=== PATIENT | female | born 1975 | race American Indian/Alaskan Native ===

== ENCOUNTER 2017-07-27 02:01 | Emergency (ER) | payer BC ==
[2017-07-27 02:39] VITALS: BP 143/86
--- NOTE | 2017-07-27 04:38 | Emergency Department Report ---
ED ENT HPI - General Chief complaint: Sore Throat Stated complaint: SORE THROAT; RT EARACHE Time Seen by Provider: 07/27/17 04:32 Source: patient Mode of arrival: Ambulatory Limitations: No Limitations - History of Present Illness MD complaint: sore throat, ear pain Onset/Timin -: days(s) Location: throat Severity: moderate Quality: aching Consistency: constant Improves with: none Worsens with: none Associated Symptoms: sore throat - Related Data Home Medications Medication Instructions Recorded Confirmed Last Taken Hydrochlorothiazide 25 mg PO DAILY 08/28/13 06/16/14 06/15/14 Simvastatin 20 mg PO QHS 06/11/14 06/16/14 06/15/14 Previous Rx's Medication Instructions Recorded Last Taken Type Amoxicillin/K Clav Tab [Augmentin 1 tab PO BID #10 tablet 06/11/14 06/15/14 Rx 875MG] Ibuprofen [Motrin] 800 mg PO Q8H #30 tablet 06/16/14 Unknown Rx Ondansetron [Zofran Odt] 4 mg PO Q4H PRN #20 tab.rapdis 06/16/14 Unknown Rx methOCARBAMOL [Robaxin] 500 mg PO BID #30 tab 06/16/14 Unknown Rx methylPREDNISolone [Medrol Dose 4 mg PO DAILY 6 Days tab 06/16/14 Unknown Rx [place]] Azithromycin [Zithromax Z-SANTIAGO] 250 mg PO DAILY #6 tablet 08/25/14 Unknown Rx HYDROcodone/APAP 5-325 [[place] 1 each PO Q6HR PRN #14 tablet 08/25/14 Unknown Rx 5-325 mg TAB] Ondansetron [Zofran Odt] 4 mg PO Q6H #14 tab.rapdis 08/25/14 Unknown Rx Gentamicin 0.3% Ophth Oint 1 applicatio OP Q4H #1 tube 04/28/15 Unknown Rx Ibuprofen [Motrin] 800 mg PO Q8HR PRN #60 tablet 04/28/15 Unknown Rx traMADol [Ultram] 50 mg PO Q6HR PRN #14 tablet 04/28/15 Unknown Rx Amoxicillin/K Clav Tab [Augmentin 1 tab PO Q12HR #14 tab 07/27/17 Unknown Rx 875 mg] Amoxicillin/Potassium Clav 800 mg PO Q12HR #1 bottle 07/27/17 Unknown Rx [Augmentin 400-57 MG / 5ml] Fluconazole [Diflucan] 150 mg PO ONCE #1 tablet 07/27/17 Unknown Rx Ibuprofen [Motrin] 600 mg PO Q8H PRN #30 tablet 07/27/17 Unknown Rx Allergies Allergy/AdvReac Type Severity Reaction Status Date / Time codeine Allergy Rash Verified 08/28/13 20:41 hydromorphone HCl Allergy Rash Verified 08/28/13 20:45 [From Dilaudid] rosiglitazone maleate Allergy Rash Verified 08/28/13 20:41 [From Avandia] ED Dental HPI - General Chief complaint: Sore Throat Stated complaint: SORE THROAT; RT EARACHE Time Seen by Provider: 07/27/17 04:32 Source: patient Mode of arrival: Ambulatory Limitations: No Limitations - Related Data Home Medications Medication Instructions Recorded Confirmed Last Taken Hydrochlorothiazide 25 mg PO DAILY 08/28/13 06/16/14 06/15/14 Simvastatin 20 mg PO QHS 06/11/14 06/16/14 06/15/14 Previous Rx's Medication Instructions Recorded Last Taken Type Amoxicillin/K Clav Tab [Augmentin 1 tab PO BID #10 tablet 06/11/14 06/15/14 Rx 875MG] Ibuprofen [Motrin] 800 mg PO Q8H #30 tablet 06/16/14 Unknown Rx Ondansetron [Zofran Odt] 4 mg PO Q4H PRN #20 tab.rapdis 06/16/14 Unknown Rx methOCARBAMOL [Robaxin] 500 mg PO BID #30 tab 06/16/14 Unknown Rx methylPREDNISolone [Medrol Dose 4 mg PO DAILY 6 Days tab 06/16/14 Unknown Rx [place]] Azithromycin [Zithromax Z-SANTIAGO] 250 mg PO DAILY #6 tablet 08/25/14 Unknown Rx HYDROcodone/APAP 5-325 [[place] 1 each PO Q6HR PRN #14 tablet 08/25/14 Unknown Rx 5-325 mg TAB] Ondansetron [Zofran Odt] 4 mg PO Q6H #14 tab.rapdis 08/25/14 Unknown Rx Gentamicin 0.3% Ophth Oint 1 applicatio OP Q4H #1 tube 04/28/15 Unknown Rx Ibuprofen [Motrin] 800 mg PO Q8HR PRN #60 tablet 04/28/15 Unknown Rx traMADol [Ultram] 50 mg PO Q6HR PRN #14 tablet 04/28/15 Unknown Rx Amoxicillin/K Clav Tab [Augmentin 1 tab PO Q12HR #14 tab 07/27/17 Unknown Rx 875 mg] Amoxicillin/Potassium Clav 800 mg PO Q12HR #1 bottle 07/27/17 Unknown Rx [Augmentin 400-57 MG / 5ml] Fluconazole [Diflucan] 150 mg PO ONCE #1 tablet 07/27/17 Unknown Rx Ibuprofen [Motrin] 600 mg PO Q8H PRN #30 tablet 07/27/17 Unknown Rx Allergies Allergy/AdvReac Type Severity Reaction Status Date / Time codeine Allergy Rash Verified 08/28/13 20:41 hydromorphone HCl Allergy Rash Verified 08/28/13 20:45 [From Dilaudid] rosiglitazone maleate Allergy Rash Verified 08/28/13 20:41 [From Avandia] ED Review of Systems ROS: Stated complaint: SORE THROAT; RT EARACHE Other details as noted in HPI Constitutional: denies: chills, fever Eyes: denies: eye pain, eye discharge, vision change ENT: throat pain. denies: ear pain Respiratory: denies: cough, shortness of breath, wheezing Cardiovascular: denies: chest pain, palpitations Endocrine: no symptoms reported Gastrointestinal: denies: abdominal pain, nausea, diarrhea Genitourinary: denies: urgency, dysuria, discharge Musculoskeletal: denies: back pain, joint swelling, arthralgia Skin: denies: rash, lesions Neurological: denies: headache, weakness, paresthesias Psychiatric: denies: anxiety, depression Hematological/Lymphatic: denies: easy bleeding, easy bruising ED Past Medical Hx - Past Medical History Hx Hypertension: Yes Hx Diabetes: Yes - Surgical History Additional Surgical History: lap band l) knee surg uterine ablasion 12/2005 - Social History Smoking Status: Never Smoker Substance Use Type: None - Medications Home Medications: Home Medications Medication Instructions Recorded Confirmed Last Taken Type Hydrochlorothiazide 25 mg PO DAILY 08/28/13 06/16/14 06/15/14 History Amoxicillin/K Clav Tab [Augmentin 1 tab PO BID #10 tablet 06/11/14 06/16/14 Rx 875MG] Simvastatin 20 mg PO QHS 06/11/14 06/16/14 06/15/14 History Ibuprofen [Motrin] 800 mg PO Q8H #30 tablet 06/16/14 Unknown Rx Ondansetron [Zofran Odt] 4 mg PO Q4H PRN #20 tab.rapdis 06/16/14 Unknown Rx methOCARBAMOL [Robaxin] 500 mg PO BID #30 tab 06/16/14 Unknown Rx methylPREDNISolone [Medrol Dose 4 mg PO DAILY 6 Days tab 06/16/14 Unknown Rx [place]] Azithromycin [Zithromax Z-SANTIAGO] 250 mg PO DAILY #6 tablet 08/25/14 Unknown Rx HYDROcodone/APAP 5-325 [[place] 1 each PO Q6HR PRN #14 tablet 08/25/14 Unknown Rx 5-325 mg TAB] Ondansetron [Zofran Odt] 4 mg PO Q6H #14 tab.rapdis 08/25/14 Unknown Rx Gentamicin 0.3% Ophth Oint 1 applicatio OP Q4H #1 tube 04/28/15 Unknown Rx Ibuprofen [Motrin] 800 mg PO Q8HR PRN #60 tablet 04/28/15 Unknown Rx traMADol [Ultram] 50 mg PO Q6HR PRN #14 tablet 04/28/15 Unknown Rx Amoxicillin/K Clav Tab [Augmentin 1 tab PO Q12HR #14 tab 07/27/17 Unknown Rx 875 mg] Amoxicillin/Potassium Clav 800 mg PO Q12HR #1 bottle 07/27/17 Unknown Rx [Augmentin 400-57 MG / 5ml] Fluconazole [Diflucan] 150 mg PO ONCE #1 tablet 07/27/17 Unknown Rx Ibuprofen [Motrin] 600 mg PO Q8H PRN #30 tablet 07/27/17 Unknown Rx ED Physical Exam - General Limitations: No Limitations General appearance: alert, in no apparent distress - Head Head exam: Present: atraumatic, normocephalic - Eye Eye exam: Present: normal appearance, PERRL, EOMI - ENT ENT exam: Present: mucous membranes moist - Neck Neck exam: Present: normal inspection - Respiratory Respiratory exam: Present: normal lung sounds bilaterally. Absent: respiratory distress - Cardiovascular Cardiovascular Exam: Present: regular rate, normal rhythm. Absent: systolic murmur, diastolic murmur, rubs, gallop - GI/Abdominal GI/Abdominal exam: Present: soft, normal bowel sounds - Extremities Exam Extremities exam: Present: normal inspection - Back Exam Back exam: Present: normal inspection - Neurological Exam Neurological exam: Present: alert, oriented X3, CN II-XII intact, normal gait - Psychiatric Psychiatric exam: Present: normal affect, normal mood - Skin Skin exam: Present: warm, dry, intact, normal color. Absent: rash ED Course Vital Signs 07/27/17 07/27/17 02:15 03:51 Temperature 98.0 F 98 F Pulse Rate 67 68 Respiratory 18 Rate Blood Pressure 143/86 143/86 O2 Sat by Pulse 100 18 L Oximetry ED Medical Decision Making - Medical Decision Making a/P: pharyngitis, otitis media 1- motrin 800mg prn, augmentin bid 7 days 2- throat lozenges, claritin Critical care attestation.: If time is entered above; I have spent that time in minutes in the direct care of this critically ill patient, excluding procedure time. ED Disposition Clinical Impression: Pharyngitis Qualifiers: Pharyngitis/tonsillitis etiology: unspecified etiology Qualified Code(s): J02.9 - Acute pharyngitis, unspecified Otitis media Qualifiers: Otitis media type: suppurative Chronicity: acute Laterality: unspecified laterality Recurrence: not specified as recurrent Spontaneous tympanic membrane rupture: without spontaneous rupture Qualified Code(s): H66.009 - Acute suppurative otitis media without spontaneous rupture of ear drum, unspecified ear Is pt being admited?: No Does the pt Need Aspirin: No Condition: Stable Instructions: Otitis Media (ED), Pharyngitis (ED) Prescriptions: Amoxicillin/K Clav Tab [Augmentin 875 mg] 1 tab PO Q12HR #14 tab Amoxicillin/Potassium Clav [Augmentin 400-57 MG / 5ml] 800 mg PO Q12HR #1 bottle Fluconazole [Diflucan] 150 mg PO ONCE #1 tablet Ibuprofen [Motrin] 600 mg PO Q8H PRN #30 tablet PRN Reason: Pain Referrals: [facility] [place] [Outside] - 3-5 Days [facility] [Outside] - 3-5 Days Time of Disposition: 04:39
== END 2017-07-27 05:00 | disposition home or self-care (01) ==
LOC: ED 02:01
DX: J02.9 Acute pharyngitis, unspecified (principal); H92.02 Otalgia, left ear; I10 Essential (primary) hypertension; E11.9 Type 2 diabetes mellitus without complications; Z88.5 Allergy status to narcotic agent
CPT/HCPCS: 99282

== ENCOUNTER 2019-05-17 18:28 | Emergency (ER) | payer BC ==
--- NOTE | 2019-05-17 19:03 | Event Note ---
ED Screening Note ED Screening Note: pt presents with abd pain that began three days ago no vomiting +nausea no diarrhea last BM two days ago hx of lap band procedure, obstruction This initial assessment/diagnostic orders/clinical plan/treatment(s) is/are subject to change based on patients health status, clinical progression and re-assessment by fellow clinical providers in the ED. Further treatment and workup at subsequent clinical providers discretion. Patient/guardian urged not to elope from the ED as their condition may be serious if not clinically assessed and managed. Initial orders include: labs, UA, xr abdomen
[2019-05-17 19:36] LABS: Eosinophils % (Auto) 0.8 % (0.0-4.3); Hematocrit 41.7 % (30.3-42.9); Hemoglobin 13.6 gm/dl (10.1-14.3); Lymphocytes % (Auto) 35.7 % (13.4-35.0); Mean Corpuscular HGB Conc 33 % (30-34); Mean Corpuscular Volume 80 fl (79-97); Monocytes % (Auto) 4.4 % (0.0-7.3); Platelet Count 188 K/mm3 (140-440); Red Blood Count 5.24 M/mm3 (3.65-5.03); Red Cell Distribution Width 16.4 % (13.2-15.2)
[2019-05-17 19:37] LABS: Basophils # (Auto) 0.1 K/mm3 (0.0-0.1); Basophils % (Auto) 1.2 % (0.0-1.8); Eosinophils # (Auto) 0.1 K/mm3 (0.0-0.4); Lymphocytes # (Auto) 2.9 K/mm3 (1.2-5.4); Monocytes # (Auto) 0.3 K/mm3 (0.0-0.8)
[2019-05-17 20:02] LABS: Alanine Aminotransferase 13 units/L (7-56); Albumin 4.4 g/dL (3.9-5); BUN/Creatinine Ratio 21; Blood Urea Nitrogen 15 mg/dL (7-17); Calcium 10.1 mg/dL (8.4-10.2); Hemolysis Index 18
--- NOTE | 2019-05-17 21:33 | XRay Report ---
ABDOMEN 2 VIEW(S) INDICATION / CLINICAL INFORMATION: Abdominal pain. COMPARISON: None available. FINDINGS: TUBES / LINES: There is prior lap band surgery without visible complication. BOWEL GAS PATTERN: There is no evidence of bowel obstruction or mass effect. There is a mild amount o f stool throughout the colon. FREE AIR / EXTRALUMINAL GAS: None seen. ADDITIONAL FINDINGS: No significant additional findings. IMPRESSION: No acute abnormality. Signer Name: Magdi Meadows MD Signed: 05/17/2019 9:29 PM Workstation Name: [id number]
[2019-05-17 22:02] LABS: Bilirubin,Urine NEG (Negative); Blood,Urine NEG (Negative); Color,Urine Yellow (Yellow); Mucus,Urine FEW /HPF; Protein,Urine <15 mg/dL mg/dL (Negative); Urobilinogen,Urine < 2.0 mg/dL (<2.0)
[2019-05-17] MEDS ORDERED: BENTYL PO ONE (22:55)
[2019-05-17] MEDS ORDERED: PEPCID PO ONE (22:55)
[2019-05-17] MEDS ORDERED: ZOFRAN ODT PO ONE (22:55)
--- NOTE | 2019-05-17 22:55 | Emergency Department Report ---
ED Abdominal Pain HPI - General Chief Complaint: Abdominal Pain Stated Complaint: STOMACH PAIN/EXTREME Time Seen by Provider: 05/17/19 19:02 Source: patient Mode of arrival: Ambulatory Limitations: No Limitations - History of Present Illness Initial Comments: She is a 43-year-old female presents to ED complaining of pain that started Friday 3 days ago. Patient had only been surgery 6 years ago. Patient states that about a year ago, he had a similar pain. Patient states last bowel movement was 2 days ago. Patient describes pain as pressure type Nature and nausea. Denies fever, chills, diarrhea, vomiting MD Complaint: abdominal pain - Related Data Home Medications Medication Instructions Recorded Confirmed Last Taken hydroCHLOROthiazide 25 mg PO DAILY 08/28/13 06/16/14 06/15/14 [Hydrochlorothiazide] Simvastatin 20 mg PO QHS 06/11/14 06/16/14 06/15/14 Previous Rx's Medication Instructions Recorded Last Taken Type Amoxicillin/K Clav Tab [Augmentin 1 tab PO BID #10 tablet 06/11/14 06/15/14 Rx 875MG] Ibuprofen [Motrin] 800 mg PO Q8H #30 tablet 06/16/14 Unknown Rx Ondansetron [Zofran Odt] 4 mg PO Q4H PRN #20 tab.rapdis 06/16/14 Unknown Rx methOCARBAMOL [Robaxin] 500 mg PO BID #30 tab 06/16/14 Unknown Rx methylPREDNISolone [Medrol Dose 4 mg PO DAILY 6 Days tab 06/16/14 Unknown Rx [place]] Azithromycin [Zithromax Z-SANTIAGO] 250 mg PO DAILY #6 tablet 08/25/14 Unknown Rx HYDROcodone/APAP 5-325 [[place] 1 each PO Q6HR PRN #14 tablet 08/25/14 Unknown Rx 5-325 mg TAB] Ondansetron [Zofran Odt] 4 mg PO Q6H #14 tab.rapdis 08/25/14 Unknown Rx Gentamicin 0.3% Ophth Oint 1 applicatio OP Q4H #1 tube 04/28/15 Unknown Rx Ibuprofen [Motrin] 800 mg PO Q8HR PRN #60 tablet 04/28/15 Unknown Rx traMADol [Ultram] 50 mg PO Q6HR PRN #14 tablet 04/28/15 Unknown Rx Amoxicillin/K Clav Tab [Augmentin 1 tab PO Q12HR #14 tab 07/27/17 Unknown Rx 875 mg] Amoxicillin/Potassium Clav 800 mg PO Q12HR #1 bottle 07/27/17 Unknown Rx [Augmentin 400-57 MG / 5ml] Fluconazole [Diflucan] 150 mg PO ONCE #1 tablet 07/27/17 Unknown Rx Ibuprofen [Motrin] 600 mg PO Q8H PRN #30 tablet 07/27/17 Unknown Rx Dicyclomine [Bentyl] 20 mg PO TID #20 tablet 05/18/19 Unknown Rx Famotidine [Pepcid] 20 mg PO BID #30 tablet 05/18/19 Unknown Rx Ondansetron [Zofran ODT TAB] 8 mg PO TID #20 tab.rapdis 05/18/19 Unknown Rx Allergies Allergy/AdvReac Type Severity Reaction Status Date / Time codeine Allergy Rash Verified 08/28/13 20:41 hydromorphone HCl Allergy Rash Verified 08/28/13 20:45 [From Dilaudid] rosiglitazone maleate Allergy Rash Verified 08/28/13 20:41 [From Avandia] ED Review of Systems ROS: Stated complaint: STOMACH PAIN/EXTREME Other details as noted in HPI Comment: All other systems reviewed and negative ED Past Medical Hx - Past Medical History Previous Medical History?: Yes Hx Hypertension: Yes Hx Diabetes: Yes - Surgical History Past Surgical History?: Yes Additional Surgical History: lap band l) knee surg uterine ablasion 12/2005 - Social History Smoking Status: Never Smoker Substance Use Type: None - Medications Home Medications: Home Medications Medication Instructions Recorded Confirmed Last Taken Type hydroCHLOROthiazide 25 mg PO DAILY 08/28/13 06/16/14 06/15/14 History [Hydrochlorothiazide] Amoxicillin/K Clav Tab [Augmentin 1 tab PO BID #10 tablet 06/11/14 06/16/14 06/15/14 Rx 875MG] Simvastatin 20 mg PO QHS 06/11/14 06/16/14 06/15/14 History Ibuprofen [Motrin] 800 mg PO Q8H #30 tablet 06/16/14 Unknown Rx Ondansetron [Zofran Odt] 4 mg PO Q4H PRN #20 tab.rapdis 06/16/14 Unknown Rx methOCARBAMOL [Robaxin] 500 mg PO BID #30 tab 06/16/14 Unknown Rx methylPREDNISolone [Medrol Dose 4 mg PO DAILY 6 Days tab 06/16/14 Unknown Rx [place]] Azithromycin [Zithromax Z-SANTIAGO] 250 mg PO DAILY #6 tablet 08/25/14 Unknown Rx HYDROcodone/APAP 5-325 [[place] 1 each PO Q6HR PRN #14 tablet 08/25/14 Unknown Rx 5-325 mg TAB] Ondansetron [Zofran Odt] 4 mg PO Q6H #14 tab.rapdis 08/25/14 Unknown Rx Gentamicin 0.3% Ophth Oint 1 applicatio OP Q4H #1 tube 04/28/15 Unknown Rx Ibuprofen [Motrin] 800 mg PO Q8HR PRN #60 tablet 04/28/15 Unknown Rx traMADol [Ultram] 50 mg PO Q6HR PRN #14 tablet 04/28/15 Unknown Rx Amoxicillin/K Clav Tab [Augmentin 1 tab PO Q12HR #14 tab 07/27/17 Unknown Rx 875 mg] Amoxicillin/Potassium Clav 800 mg PO Q12HR #1 bottle 07/27/17 Unknown Rx [Augmentin 400-57 MG / 5ml] Fluconazole [Diflucan] 150 mg PO ONCE #1 tablet 07/27/17 Unknown Rx Ibuprofen [Motrin] 600 mg PO Q8H PRN #30 tablet 07/27/17 Unknown Rx Dicyclomine [Bentyl] 20 mg PO TID #20 tablet 05/18/19 Unknown Rx Famotidine [Pepcid] 20 mg PO BID #30 tablet 05/18/19 Unknown Rx Ondansetron [Zofran ODT TAB] 8 mg PO TID #20 tab.rapdis 05/18/19 Unknown Rx ED Physical Exam - General Limitations: No Limitations General appearance: alert, in no apparent distress - Head Head exam: Present: atraumatic, normocephalic - Eye Eye exam: Present: normal appearance - ENT ENT exam: Present: mucous membranes moist - Neck Neck exam: Present: normal inspection - Respiratory Respiratory exam: Present: normal lung sounds bilaterally. Absent: respiratory distress - Cardiovascular Cardiovascular Exam: Present: regular rate, normal rhythm. Absent: systolic murmur, diastolic murmur, rubs, gallop - GI/Abdominal GI/Abdominal exam: Present: soft, tenderness (mild, palpation of the upper abdomen), normal bowel sounds. Absent: distended, guarding, rebound - Extremities Exam Extremities exam: Present: normal inspection - Back Exam Back exam: Present: normal inspection - Neurological Exam Neurological exam: Present: alert, oriented X3 - Psychiatric Psychiatric exam: Present: normal affect, normal mood - Skin Skin exam: Present: warm, dry, intact, normal color. Absent: rash ED Course Vital Signs 05/17/19 19:02 Temperature 98.1 F Pulse Rate 112 H Respiratory 16 Rate Blood Pressure 158/91 O2 Sat by Pulse 99 Oximetry ED Medical Decision Making - Lab Data Result diagrams: 05/17/19 19:11 05/17/19 19:11 Laboratory Last Values WBC 8.0 K/mm3 (4.5-11.0) 05/17/19 19:11 RBC 5.24 M/mm3 (3.65-5.03) H 05/17/19 19:11 Hgb 13.6 gm/dl (10.1-14.3) 05/17/19 19:11 Hct 41.7 % (30.3-42.9) 05/17/19 19:11 MCV 80 fl (79-97) 05/17/19 19:11 MCH 26 pg (28-32) L 05/17/19 19:11 MCHC 33 % (30-34) 05/17/19 19:11 RDW 16.4 % (13.2-15.2) H 05/17/19 19:11 Plt Count 188 K/mm3 (140-440) 05/17/19 19:11 Lymph % (Auto) 35.7 % (13.4-35.0) H 05/17/19 19:11 [place] % (Auto) 4.4 % (0.0-7.3) 05/17/19 19:11 Eos % (Auto) 0.8 % (0.0-4.3) 05/17/19 19:11 Baso % (Auto) 1.2 % (0.0-1.8) 05/17/19 19:11 Lymph # 2.9 K/mm3 (1.2-5.4) 05/17/19 19:11 [place] # 0.3 K/mm3 (0.0-0.8) 05/17/19 19:11 Eos # 0.1 K/mm3 (0.0-0.4) 05/17/19 19:11 Baso # 0.1 K/mm3 (0.0-0.1) 05/17/19 19:11 Seg Neutrophils % 57.9 % (40.0-70.0) 05/17/19 19:11 Seg Neutrophils # 4.6 K/mm3 (1.8-7.7) 05/17/19 19:11 Sodium 137 mmol/L (137-145) 05/17/19 19:11 Potassium 3.5 mmol/L (3.6-5.0) L 05/17/19 19:11 Chloride 95.8 mmol/L (98-107) L 05/17/19 19:11 Carbon Dioxide 22 mmol/L (22-30) 05/17/19 19:11 23 mmol/L 05/17/19 19:11 BUN 15 mg/dL (7-17) 05/17/19 19:11 0.7 mg/dL (0.7-1.2) 05/17/19 19:11 Estimated GFR > 60 ml/min 05/17/19 19:11 21 % 05/17/19 19:11 Glucose 106 mg/dL (65-100) H 05/17/19 19:11 Calcium 10.1 mg/dL (8.4-10.2) 05/17/19 19:11 0.60 mg/dL (0.1-1.2) 05/17/19 19:11 AST 16 units/L (5-40) 05/17/19 19:11 ALT 13 units/L (7-56) 05/17/19 19:11 73 units/L (35-129) 05/17/19 19:11 8.4 g/dL (6.3-8.2) H 05/17/19 19:11 4.4 g/dL (3.9-5) 05/17/19 19:11 1.1 % 05/17/19 19:11 14 units/L (13-60) 05/17/19 19:11 HCG, Qual Negative (Negative) 05/17/19 19:11 Yellow (Yellow) 05/17/19 Unknown Clear (Clear) 05/17/19 Unknown 5.0 (5.0-7.0) 05/17/19 Unknown Ur Specific [place] 1.033 (1.003-1.030) H 05/17/19 Unknown <15 mg/dl mg/dL (Negative) 05/17/19 Unknown >=500 mg/dL (Negative) 05/17/19 Unknown 20 mg/dL (Negative) 05/17/19 Unknown Neg (Negative) 05/17/19 Unknown Neg (Negative) 05/17/19 Unknown Neg (Negative) 05/17/19 Unknown < 2.0 mg/dL (<2.0) 05/17/19 Unknown Ur Leukocyte Esterase Neg (Negative) 05/17/19 Unknown 2.0 /HPF (0.0-6.0) 05/17/19 Unknown 4.0 /HPF (0.0-6.0) 05/17/19 Unknown U Epithel Cells (Auto) < 1.0 /HPF (0-13.0) 05/17/19 Unknown Few /HPF 05/17/19 Unknown - Radiology Data Radiology results: report reviewed, image reviewed DICATION / CLINICAL INFORMATION: Abdominal pain. COMPARISON: None available. FINDINGS: TUBES / LINES: There is prior lap band surgery without visible complication. BOWEL GAS PATTERN: There is no evidence of bowel obstruction or mass effect. There is a mild amount of stool throughout the colon. FREE AIR / EXTRALUMINAL GAS: None seen. ADDITIONAL FINDINGS: No significant additional findings. IMPRESSION: No acute abnormality. Signer Name: Magdi Meadows MD Signed: 05/17/2019 9:29 PM Workstation Name: [id number] Transcribed By: RT Dictated By: Magdi Meadows MD Electronically Authenticated By: Magdi Meadows MD Signed Date/Time: 05/17/19 373 - Medical Decision Making This 43-year-old female presents with abdominal pain [place] secondary to constipation. All labs are within normal limits. Discussed findings with the patient. She received Benadryl, Zofran and Pepcid and ED. X-ray shows no acute findings. 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 Vital signs are normal patient is in no acute distress. Critical care attestation.: If time is entered above; I have spent that time in minutes in the direct care of this critically ill patient, excluding procedure time. ED Disposition Clinical Impression: Constipation, Abdominal pain Disposition: DC-01 TO HOME OR SELFCARE Is pt being admited?: No Does the pt Need Aspirin: No Condition: Stable Instructions: Abdominal Pain (ED), Constipation (ED), High Fiber Diet (ED) Additional Instructions: Make sure to follow up with the primary care physician as discussed. Take all your medications as you've been prescribed. If you have any worsening symptoms or develop new symptoms please return to ED immediately. Prescriptions: Dicyclomine [Bentyl] 20 mg PO TID #20 tablet Famotidine [Pepcid] 20 mg PO BID #30 tablet Ondansetron [Zofran ODT TAB] 8 mg PO TID #20 tab.nicole Referrals: PRIMARY CARE,MD [Primary Care Provider] - 3-5 Days [facility] [Provider Group] - 3-5 Days Forms: Accompanied Note, Work/School Release Form(ED) Time of Disposition: 00:09
[2019-05-18 01:08] VITALS: BP 155/90
== END 2019-05-18 00:30 | disposition home or self-care (01) ==
LOC: ED 18:28
DX: R10.9 Unspecified abdominal pain (principal); K59.00 Constipation, unspecified; I10 Essential (primary) hypertension; E11.9 Type 2 diabetes mellitus without complications; Z79.899 Other long term (current) drug therapy; Z88.6 Allergy status to analgesic agent; Z88.1 Allergy status to other antibiotic agents
CPT/HCPCS: 36415; 74019; 80053; 81001; 83690; 84703; 85025; Q0162

== ENCOUNTER 2019-11-26 17:19 | Emergency (ER) | payer BC ==
--- NOTE | 2019-11-26 17:43 | Event Note ---
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 Further treatment and workup at subsequent clinical providers discretion. Patient/guardian urged not to elope from the ED as their condition may be serious if not clinically assessed and managed. Initial orders include: xr labs
--- NOTE | 2019-11-26 19:34 | XRay Report ---
CHEST 1 VIEW INDICATION / CLINICAL INFORMATION: MAIN: fever cough shortness of breath; Pt c/o acute SOB. Pt. at her PCP today and was tested for COV ID19. Pt. tachy in triage, Temp 99.0. Pt. works in a [employer]. . COMPARISON: 08/25/2014 FINDINGS: SUPPORT DEVICES: None. HEART / MEDIASTINUM: No significant abnormality. LUNGS / PLEURA: No significant pulmonary or pleural abnormality. No pneumothorax. ADDITIONAL FINDINGS: Bilateral anterior cervical ribs. IMPRESSION: 1. No acute findings. Signer Name: Enmanuel Gardner MD Signed: 11/26/2019 7:30 PM Workstation Name: [id number]
[2019-11-26 19:53] LABS: Basophils # (Auto) 0.1 K/mm3 (0.0-0.1); Basophils % (Auto) 1.3 % (0.0-1.8); Eosinophils # (Auto) 0.1 K/mm3 (0.0-0.4); Eosinophils % (Auto) 1.5 % (0.0-4.3); Hematocrit 39.6 % (30.3-42.9); Lymphocytes # (Auto) 2.3 K/mm3 (1.2-5.4); Lymphocytes % (Auto) 37.9 % (13.4-35.0); Mean Corpuscular HGB Conc 33 % (30-34); Mean Corpuscular Volume 81 fl (79-97); Monocytes # (Auto) 0.4 K/mm3 (0.0-0.8); Platelet Count 168 K/mm3 (140-440); Red Blood Count 4.89 M/mm3 (3.65-5.03); Red Cell Distribution Width 16.4 % (13.2-15.2)
--- NOTE | 2019-11-26 20:03 | Emergency Department Report ---
- General Chief Complaint: Dyspnea/Respdistress Stated Complaint: SOB/LOW TEMP/BACK/CHEST PAIN Time Seen by Provider: 11/26/19 19:11 Source: patient Mode of arrival: Ambulatory Limitations: No Limitations - History of Present Illness MD Complaint: cough, sore throat, rhinorrhea, nasal congestion Severity: mild Quality: dull Consistency: constant Improves With: nothing Worsens With: nothing Associated Symptoms: denies other symptoms, rhinorrhea, nasal congestion, sore throat, cough, chest pain. denies: vomiting, diarrhea, weight loss, epistaxis - Related Data Home Medications Medication Instructions Recorded Confirmed Last Taken hydroCHLOROthiazide 25 mg PO DAILY 08/28/13 06/16/14 06/15/14 [Hydrochlorothiazide] Simvastatin 20 mg PO QHS 06/11/14 06/16/14 06/15/14 Previous Rx's Medication Instructions Recorded Last Taken Type Amoxicillin/K Clav Tab [Augmentin 1 tab PO BID #10 tablet 06/11/14 06/15/14 Rx 875MG] Ibuprofen [Motrin] 800 mg PO Q8H #30 tablet 06/16/14 Unknown Rx Ondansetron [Zofran Odt] 4 mg PO Q4H PRN #20 tab.rapdis 06/16/14 Unknown Rx methOCARBAMOL [Robaxin] 500 mg PO BID #30 tab 06/16/14 Unknown Rx methylPREDNISolone [Medrol Dose 4 mg PO DAILY 6 Days tab 06/16/14 Unknown Rx Star] Azithromycin [Zithromax Z-STAR] 250 mg PO DAILY #6 tablet 08/25/14 Unknown Rx HYDROcodone/APAP 5-325 [Imler 1 each PO Q6HR PRN #14 tablet 08/25/14 Unknown Rx 5-325 mg TAB] Ondansetron [Zofran Odt] 4 mg PO Q6H #14 tab.rapdis 08/25/14 Unknown Rx Gentamicin 0.3% Ophth Oint 1 applicatio OP Q4H #1 tube 04/28/15 Unknown Rx Ibuprofen [Motrin] 800 mg PO Q8HR PRN #60 tablet 04/28/15 Unknown Rx traMADoL [Ultram] 50 mg PO Q6HR PRN #14 tablet 04/28/15 Unknown Rx Amoxicillin/K Clav Tab [Augmentin 1 tab PO Q12HR #14 tab 07/27/17 Unknown Rx 875 mg] Amoxicillin/Potassium Clav 800 mg PO Q12HR #1 bottle 07/27/17 Unknown Rx [Augmentin 400-57 MG / 5ml] Fluconazole [Diflucan] 150 mg PO ONCE #1 tablet 07/27/17 Unknown Rx Ibuprofen [Motrin] 600 mg PO Q8H PRN #30 tablet 07/27/17 Unknown Rx Dicyclomine [Bentyl] 20 mg PO TID #20 tablet 05/18/19 Unknown Rx Famotidine [Pepcid] 20 mg PO BID #30 tablet 05/18/19 Unknown Rx Ondansetron [Zofran ODT TAB] 8 mg PO TID #20 tab.rapdis 05/18/19 Unknown Rx Albuterol INH(or & Nicu Only) 1 puff IH QID PRN #8.5 gram 11/26/19 Unknown Rx [ProAir HFA Inhaler] Benzonatate [Tessalon Perles] 100 mg PO Q8HR #20 capsule 11/26/19 Unknown Rx Ketorolac [Toradol] 10 mg PO Q6H PRN #14 tablet 11/26/19 Unknown Rx Allergies Allergy/AdvReac Type Severity Reaction Status Date / Time codeine Allergy Rash Verified 08/28/13 20:41 hydromorphone HCl Allergy Rash Verified 08/28/13 20:45 [From Dilaudid] rosiglitazone maleate Allergy Rash Verified 08/28/13 20:41 [From Avandia] ED Review of Systems ROS: Stated complaint: SOB/LOW TEMP/BACK/CHEST PAIN Other details as noted in HPI Comment: All other systems reviewed and negative ED Past Medical Hx - Past Medical History Previous Medical History?: Yes Hx Hypertension: Yes Hx Diabetes: Yes - Surgical History Past Surgical History?: Yes Additional Surgical History: lap band l) knee surg uterine ablasion 12/2005 - Social History Smoking Status: Never Smoker Substance Use Type: None - Medications Home Medications: Home Medications Medication Instructions Recorded Confirmed Last Taken Type hydroCHLOROthiazide 25 mg PO DAILY 08/28/13 06/16/14 06/15/14 History [Hydrochlorothiazide] Amoxicillin/K Clav Tab [Augmentin 1 tab PO BID #10 tablet 06/11/14 06/16/14 06/15/14 Rx 875MG] Simvastatin 20 mg PO QHS 06/11/14 06/16/14 06/15/14 History Ibuprofen [Motrin] 800 mg PO Q8H #30 tablet 06/16/14 Unknown Rx Ondansetron [Zofran Odt] 4 mg PO Q4H PRN #20 tab.rapdis 06/16/14 Unknown Rx methOCARBAMOL [Robaxin] 500 mg PO BID #30 tab 06/16/14 Unknown Rx methylPREDNISolone [Medrol Dose 4 mg PO DAILY 6 Days tab 06/16/14 Unknown Rx Star] Azithromycin [Zithromax Z-STAR] 250 mg PO DAILY #6 tablet 08/25/14 Unknown Rx HYDROcodone/APAP 5-325 [Imler 1 each PO Q6HR PRN #14 tablet 08/25/14 Unknown Rx 5-325 mg TAB] Ondansetron [Zofran Odt] 4 mg PO Q6H #14 tab.rapdis 08/25/14 Unknown Rx Gentamicin 0.3% Ophth Oint 1 applicatio OP Q4H #1 tube 04/28/15 Unknown Rx Ibuprofen [Motrin] 800 mg PO Q8HR PRN #60 tablet 04/28/15 Unknown Rx traMADoL [Ultram] 50 mg PO Q6HR PRN #14 tablet 04/28/15 Unknown Rx Amoxicillin/K Clav Tab [Augmentin 1 tab PO Q12HR #14 tab 07/27/17 Unknown Rx 875 mg] Amoxicillin/Potassium Clav 800 mg PO Q12HR #1 bottle 07/27/17 Unknown Rx [Augmentin 400-57 MG / 5ml] Fluconazole [Diflucan] 150 mg PO ONCE #1 tablet 07/27/17 Unknown Rx Ibuprofen [Motrin] 600 mg PO Q8H PRN #30 tablet 07/27/17 Unknown Rx Dicyclomine [Bentyl] 20 mg PO TID #20 tablet 05/18/19 Unknown Rx Famotidine [Pepcid] 20 mg PO BID #30 tablet 05/18/19 Unknown Rx Ondansetron [Zofran ODT TAB] 8 mg PO TID #20 tab.rapdis 05/18/19 Unknown Rx Albuterol INH(or & Nicu Only) 1 puff IH QID PRN #8.5 gram 11/26/19 Unknown Rx [ProAir HFA Inhaler] Benzonatate [Tessalon Perles] 100 mg PO Q8HR #20 capsule 03/27/20 Unknown Rx Ketorolac [Toradol] 10 mg PO Q6H PRN #14 tablet 11/26/19 Unknown Rx ED Physical Exam - General Limitations: No Limitations General appearance: alert, in no apparent distress - Head Head exam: Present: atraumatic, normocephalic - Eye Eye exam: Present: normal appearance, PERRL, EOMI. Absent: scleral icterus, conjunctival injection Pupils: Present: normal accommodation - ENT ENT exam: Present: normal exam, normal orophraynx, mucous membranes moist, other (Pharynx has mild erythema. No exudate or swelling. No abscess noted. Tongue and uvula are midline.). Absent: TM's normal bilaterally (There was treated trip to the tenderness to the right no swelling or drainage coming from the ear. Tympanic membrane is intact) - Neck Neck exam: Present: normal inspection. Absent: lymphadenopathy - Respiratory Respiratory exam: Present: normal lung sounds bilaterally. Absent: respiratory distress, wheezes, rales, accessory muscle use, decreased breath sounds - Cardiovascular Cardiovascular Exam: Present: regular rate, normal rhythm. Absent: systolic murmur, diastolic murmur, rubs, gallop - GI/Abdominal GI/Abdominal exam: Present: soft, normal bowel sounds. Absent: distended, tenderness, hyperactive bowel sounds, hypoactive bowel sounds, organomegaly - Extremities Exam Extremities exam: Present: normal inspection - Back Exam Back exam: Present: normal inspection - Neurological Exam Neurological exam: Present: alert, oriented X3 - Psychiatric Psychiatric exam: Present: normal affect, normal mood - Skin Skin exam: Present: warm, dry, intact, normal color. Absent: rash ED Course Vital Signs 11/26/19 17:49 Temperature 99.0 F Pulse Rate 113 H Respiratory 20 Rate Blood Pressure 145/91 O2 Sat by Pulse 93 Oximetry ED Medical Decision Making - Radiology Data Radiology results: report reviewed Referring Physician:ANAID LOVEPatient Name:DANIEL LATHAMPatient ID:[id number] of :[id number]:FemaleAccession:[id number] Date:[id number] Status:Finalized Findings [facility] [address] [place] [address] XRay Report Signed Patient: DANIEL LATHAM MR#: [id number] 7 : 1975 Acct:[id number] Age/Sex: 43 / F ADM Date: 11/26/19 Loc: ED Attending Dr: Ordering Physician: Anaid Couch MD Date of Service: 11/26/19 Procedure(s): XR chest 1V ap Accession Number(s): [id number] cc: Anaid Couch MD Fluoro Time In Minutes: CHEST 1 VIEW INDICATION / CLINICAL INFORMATION: MAIN: fever cough shortness of breath; Pt c/o acute SOB. Pt. at her PCP today and was tested for COVID19. Pt. tachy in triage, Temp 99.0. Pt. works in a [employer]. . COMPARISON: 08/25/2014 FINDINGS: SUPPORT DEVICES: None. HEART / MEDIASTINUM: No significant abnormality. LUNGS / PLEURA: No significant pulmonary or pleural abnormality. No pneumothorax. ADDITIONAL FINDINGS: Bilateral anterior cervical ribs. IMPRESSION: 1. No acute findings. Signer Name: Enmanuel Gardner MD Signed: 11/26/2019 7:30 PM Workstation Name: [id number] Transcribed By: [place] Dictated By: Enmanuel Gardner MD Electronically Authenticated By: Enmanuel Gardner MD Signed Date/Time: 11/26/191929 DD/ 28 TD/TT: Critical care attestation.: If time is entered above; I have spent that time in minutes in the direct care of this critically ill patient, excluding procedure time. ED Disposition Condition: Stable Referrals: PRIMARY CARE, [Primary Care Provider] - 3-5 Days
[2019-11-26 20:13] LABS: BUN/Creatinine Ratio 19; Blood Urea Nitrogen 15 mg/dL (7-17); Calcium 9.4 mg/dL (8.4-10.2); Hemolysis Index 7
[2019-11-26 20:47] VITALS: BP 140/90
[2019-11-26] MEDS ORDERED: ACETAMINOPHEN 325 MG TAB ONE (21:11)
[2019-11-26] MEDS ORDERED: ACETAMINOPHEN 325 MG TAB PO ONE (21:14)
== END 2019-11-26 21:23 | disposition home or self-care (01) ==
LOC: ED 17:19
DX: J02.9 Acute pharyngitis, unspecified (principal); R05 Cough; R09.81 Nasal congestion; I10 Essential (primary) hypertension; E11.9 Type 2 diabetes mellitus without complications; Z88.5 Allergy status to narcotic agent; Z88.8 Allergy status to other drugs, medicaments and biological substances
CPT/HCPCS: 36415; 71045; 80048; 85025

== ENCOUNTER 2020-02-28 14:09 | Emergency (ER) | payer BC ==
[2020-02-28 15:51] VITALS: BP 155/85
--- NOTE | 2020-02-28 15:54 | Event Note ---
ED Screening Note Date of service: 02/28/20 Time: 15:53 ED Screening Note: Patient complains of right leg pain for the past week. She reports the pain began after she had a massage to the leg performed She has history of diabetes and hypertension Patient reports her glucose is running about 101 and is well controlled This initial assessment/diagnostic orders/clinical plan/treatment(s) is/are subject to change based on patients health status, clinical progression and re- assessment by fellow clinical providers in the ED. Further treatment and workup at subsequent clinical providers discretion. Patient/guardian urged not to elope from the ED as their condition may be serious if not clinically assessed and managed. Initial orders include: US
--- NOTE | 2020-02-28 17:29 | Vascular Lab Report ---
DUPLEX DOPPLER LOWER EXTREMITY VEINS, RIGHT INDICATION / CLINICAL INFORMATION: pain in lower and upper posterior leg. TECHNIQUE: Duplex doppler imaging was performed through the veins of the right lower extremity using venous comp ression and other maneuvers. COMPARISON: None available. FINDINGS: RIGHT COMMON FEMORAL VEIN: Negative. RIGHT FEMORAL VEIN: Negative. RIGHT POPLITEAL VEIN: Negative. RIGHT CALF VEINS: Negative. ADDITIONAL FINDINGS: There is a 2.7 x 0.9 cm hypoechoic structure in the popliteal fossa. This could represent a complex popliteal cyst. This could represent some focal edema. IMPRESSION: 1. No sonographic evidence for DVT in the right lower extremity. 2. Hypoechoic structure in the popliteal fossa is indeterminate. This could represent a complex popli teal cyst or focal edema. Signer Name: Leobardo Franklin MD Signed: 02/28/2020 5:24 PM Workstation Name: [id number]
--- NOTE | 2020-02-28 17:47 | Emergency Department Report ---
HPI - General Chief Complaint: Extremity Injury, Lower Time Seen by Provider: 02/28/20 15:49 - HPI HPI: 44-year-old female presents to the emergency department with a one-week history of pain to the right leg that is worst in the upper calf, posterior knee, and distal hamstring. She denies any swelling of the leg, any rash or skin color changes. She denies any restriction to range of motion. She has a history of diabetes, hypertension, sciatica. She recently saw her primary care physician who says that she could also be having neuropathy and has started her on magnesium and vitamin B1. She denies any recent fall or trauma to the area. ED Past Medical Hx - Past Medical History Previous Medical History?: Yes Hx Hypertension: Yes Hx Diabetes: Yes - Surgical History Past Surgical History?: Yes Additional Surgical History: lap band l) knee surg uterine ablasion 12/2005 - Social History Smoking Status: Unknown if ever smoked Substance Use Type: None - Medications Home Medications: Home Medications Medication Instructions Recorded Confirmed Last Taken Type hydroCHLOROthiazide 25 mg PO DAILY 08/28/13 06/16/14 06/15/14 History [Hydrochlorothiazide] Amoxicillin/K Clav Tab [Augmentin 1 tab PO BID #10 tablet 06/11/14 06/16/14 06/15/14 Rx 875MG] Simvastatin 20 mg PO QHS 06/11/14 06/16/14 06/15/14 History Ibuprofen [Motrin] 800 mg PO Q8H #30 tablet 06/16/14 Unknown Rx Ondansetron [Zofran Odt] 4 mg PO Q4H PRN #20 tab.rapdis 06/16/14 Unknown Rx methOCARBAMOL [Robaxin] 500 mg PO BID #30 tab 06/16/14 Unknown Rx methylPREDNISolone [Medrol Dose 4 mg PO DAILY 6 Days tab 06/16/14 Unknown Rx Santiago] Azithromycin [Zithromax Z-SANTIAGO] 250 mg PO DAILY #6 tablet 08/25/14 Unknown Rx HYDROcodone/APAP 5-325 [Barney 1 each PO Q6HR PRN #14 tablet 08/25/14 Unknown Rx 5-325 mg TAB] Ondansetron [Zofran Odt] 4 mg PO Q6H #14 tab.rapdis 08/25/14 Unknown Rx Gentamicin 0.3% Ophth Oint 1 applicatio OP Q4H #1 tube 04/28/15 Unknown Rx Ibuprofen [Motrin] 800 mg PO Q8HR PRN #60 tablet 04/28/15 Unknown Rx traMADoL [Ultram] 50 mg PO Q6HR PRN #14 tablet 04/28/15 Unknown Rx Amoxicillin/K Clav Tab [Augmentin 1 tab PO Q12HR #14 tab 07/27/17 Unknown Rx 875 mg] Amoxicillin/Potassium Clav 800 mg PO Q12HR #1 bottle 07/27/17 Unknown Rx [Augmentin 400-57 MG / 5ml] Fluconazole [Diflucan] 150 mg PO ONCE #1 tablet 07/27/17 Unknown Rx Ibuprofen [Motrin] 600 mg PO Q8H PRN #30 tablet 07/27/17 Unknown Rx Dicyclomine [Bentyl] 20 mg PO TID #20 tablet 05/18/19 Unknown Rx Famotidine [Pepcid] 20 mg PO BID #30 tablet 05/18/19 Unknown Rx Ondansetron [Zofran ODT TAB] 8 mg PO TID #20 tab.rapdis 05/18/19 Unknown Rx Albuterol INH(or & Nicu Only) 1 puff IH QID PRN #8.5 gram 11/26/19 Unknown Rx [ProAir HFA Inhaler] Benzonatate [Tessalon Perles] 100 mg PO Q8HR #20 capsule 11/26/19 Unknown Rx Ketorolac [Toradol] 10 mg PO Q6H PRN #14 tablet 11/26/19 Unknown Rx ED Review of Systems ROS: Stated complaint: BODY PAIN Other details as noted in HPI Comment: All other systems reviewed and negative Constitutional: denies: chills, fever Musculoskeletal: arthralgia, myalgia. denies: back pain, joint swelling Skin: denies: rash, lesions Neurological: denies: numbness, paresthesias Physical Exam - Physical Exam Vital Signs: Vital Signs 02/28/20 15:42 Temperature 98.3 F Pulse Rate 91 H Respiratory 18 Rate Blood Pressure 155/85 O2 Sat by Pulse 100 Oximetry Physical Exam: GENERAL: The patient is well-developed well-nourished. HENT: Normocephalic. Atraumatic. Patient has moist mucous membranes. EYES: Extraocular motions are intact. NECK: Supple. Trachea is midline. SKIN: Skin is warm and dry. NEURO: The patient is awake, alert, and oriented. The patient is cooperative. Normal speech. MUSCULOSKELETAL: There is some reproducible tenderness palpation to the proximal right calf, the posterior right knee and the distal right hamstring, but no obvious deformity. There is no limitation range of motion. ED Course Vital Signs 02/28/20 15:42 Temperature 98.3 F Pulse Rate 91 H Respiratory 18 Rate Blood Pressure 155/85 O2 Sat by Pulse 100 Oximetry ED Medical Decision Making - Radiology Data Radiology results: report reviewed DUPLEX DOPPLER LOWER EXTREMITY VEINS, RIGHT INDICATION / CLINICAL INFORMATION: pain in lower and upper posterior leg. TECHNIQUE: Duplex doppler imaging was performed through the veins of the right lower extremity using venous compression and other maneuvers. COMPARISON: None available. FINDINGS: RIGHT CO MMON FEMORAL VEIN: Negative. RIGHT FEMORAL VEIN: Negative. RIGHT POPLITEAL VEIN: Negative. RIGHT CALF VEINS: Negative. ADDITIONAL FINDINGS: There is a 2.7 x 0.9 cm hypoechoic structure in the popliteal fossa. This could represent a complex popliteal cyst. This could represent some focal edema. IMPRESSION: 1. No sonographic evidence for DVT in the right lower extremity. 2. Hypoechoic structure in the popliteal fossa is indeterminate. This could represent a complex popliteal cyst or focal edema. - Medical Decision Making This patient presents with some atraumatic pain to the right leg that includes the upper calf and lower hamstring and posterior knee. On examination there is no obvious deformity and she appears neurovascularly intact. She does have some reproducible tenderness to palpation in these areas. Venous Doppler ultrasound was negative for DVT. The patient already has a history of sciatica and was recently diagnosed with neuropathy, both of which could be in the differential for this patient's right leg discomfort. The ultrasound also showed the possibility of a Jeter's cyst. She appears safe for discharge home. She has been given a referral for a local orthopedist and also instructed to follow-up with her primary care physician. She will return to the ER with any worsening of her symptoms or any acute distress. Critical Care Time: No Critical care attestation.: If time is entered above; I have spent that time in minutes in the direct care of this critically ill patient, excluding procedure time. ED Disposition Clinical Impression: Right leg pain Jeter's cyst of knee Qualifiers: Laterality: right Qualified Code(s): M71.21 - Synovial cyst of popliteal space [Jeter], right knee Disposition: DC-01 TO HOME OR SELFCARE Is pt being admited?: No Condition: Stable Instructions: Jeter's Cyst (ED), Arthralgia (ED) Additional Instructions: Please follow up with your primary care physician in the next few days. I am also giving you a referral for a local orthopedist, Dr Sanchez, to follow up regarding your right leg pain and possible Jeter Cyst. Return to the emergency department with any worsening of your symptoms or any acute distress. Referrals: JOSE SANCHEZ MD [Staff Physician] - 3-5 Days Time of Disposition: 17:47
== END 2020-02-28 17:52 | disposition home or self-care (01) ==
LOC: ED 14:09
DX: M71.21 Synovial cyst of popliteal space [Baker], right knee (principal); M79.604 Pain in right leg; I10 Essential (primary) hypertension; E11.9 Type 2 diabetes mellitus without complications; Z79.1 Long term (current) use of non-steroidal anti-inflammatories (NSAID); Z79.2 Long term (current) use of antibiotics; Z79.899 Other long term (current) drug therapy; Z88.4 Allergy status to anesthetic agent; Z88.8 Allergy status to other drugs, medicaments and biological substances
CPT/HCPCS: 99283